=== PATIENT | male | born 1995 | race African-American/Black ===

== ENCOUNTER 2023-03-20 14:25 | Emergency (ER) | payer OTHER, SELFPAY ==
[2023-03-20 14:35] VITALS: BP 120/90; PULSE 64; RESP 20; TEMP 37.1; O2SAT 97; BMI 23.0
--- NOTE | 2023-03-20 14:43 | PC.NURSE ---
Laceration to left base of thumb, small amount of bleeding, area cleansed with chlorhexadine solution
[2023-03-20] MEDS: ADACEL DIPH,PERTUSS(ACELL),TET VAC/PF 0.5 ML ADULT SYRINGE IM (15:28)
[2023-03-20] MEDS: LIDOCAINE HCL 1% 100 MG/10 ML MDV INJ (15:28)
[2023-03-20] MEDS: BACITRACIN 0.9 GM PACKET 1 PACKET TOPICAL (15:30)
[2023-03-20 15:33] VITALS: BP 122/84; PULSE 66; RESP 18; O2SAT 98
--- NOTE | 2023-03-20 15:38 | ED_ITS ---
HPI - Wound/Laceration General Chief Complaint: Wound/Laceration Stated Complaint: BWC - L HAND INJURY Time Seen by Provider: 03/20/23 14:35 Source: patient Mode of arrival: walk-in Limitations: no limitations History of Present Illness HPI narrative: Patient is a 27-year-old male who presents to the emergency department for a laceration to the left hand. Patient states he was at work when he accidentally cut himself with a utility knife. He sustained a 2.5 cm laceration to the base of the left thumb, he is right-hand dominant. Bleeding is well-controlled. No other associated injuries. Related Data Previous Rx's Medication Instructions Recorded ibuprofen 600 mg tablet 600 mg PO QID PRN pain #20 tabs 03/20/23 Allergies Allergy/AdvReac Type Severity Reaction Status Date / Time No Known Drug Allergies Allergy Verified 03/20/23 14:34 Review of Systems ROS Constitutional Denies: fever or chills Ears, nose, mouth, and throat Denies: throat pain Cardiovascular Denies: chest pain Gastrointestinal Denies: nausea or vomiting Musculoskeletal Denies: extremity pain Integumentary/Breast Denies: rash Neurological Denies: headache Allergic/Immunologic Denies: hives Exam Narrative Exam Narrative: Gen.: Awake, alert, in no distress Head: Normocephalic, atraumatic ENT: Moist mucous membranes Respiratory: No respiratory distress Extremities: 2.5 cm superficial laceration noted to the left hand on the radial aspect of the left hand, just proximal to the first MCP joint. There is minimal subcutaneous tissue exposure, no tendon visualization. Normal flexion and extension at the IP joint of the left thumb, no evidence of tendon deficit. No active bleeding. Psych: Normal mood and affect Neuro: No focal neuro deficit Skin: Warm, dry Constitutional Vital Signs, click to edit/add: Last Vital Signs Temp 98.7 F 03/20/23 14:35 Pulse 66 03/20/23 15:33 Resp 18 03/20/23 15:33 BP 122/84 03/20/23 15:33 Pulse Ox 98 03/20/23 15:33 O2 Del Method Room Air 03/20/23 14:35 Course Vital Signs Vital signs: Vital Signs Temperature 98.7 F 03/20/23 14:35 Pulse Rate 64 03/20/23 14:35 Respiratory Rate 20 03/20/23 14:35 Blood Pressure 120/90 03/20/23 14:35 Pulse Oximetry 97 03/20/23 14:35 Oxygen Delivery Method Room Air 03/20/23 14:35 Temperature 98.7 F 03/20/23 14:35 Pulse Rate 66 03/20/23 15:33 Respiratory Rate 18 03/20/23 15:33 Blood Pressure 122/84 03/20/23 15:33 Pulse Oximetry 98 03/20/23 15:33 Oxygen Delivery Method Room Air 03/20/23 14:35 MDM - Wound/Laceration MDM Narrative Medical decision making narrative: Laceration was repaired without difficulty, tetanus updated in the ER. Please see procedure note for details. Sutures removed in 7 to 10 days with occupational health, return to the emergency department if symptoms change or worsen. Prescription for anti-inflammatories given for home. Laceration repair: 4 cc of 1% lidocaine were injected locally to the laceration, appropriate anesthesia achieved. The laceration was cleansed with Shur-Clens and irrigated with saline, no foreign body identified. The laceration was closed with 3, 4-0 Ethilon sutures. Patient tolerated procedure well. The laceration was dressed with bacitracin, sterile dressing. Patient remains neurovascularly intact. Medical Records Attestation: I reviewed the patient's medical records. Discharge Plan Discharge Chief Complaint: Wound/Laceration Clinical Impression: Laceration of left hand Patient Disposition: Home, Self-Care Time of Disposition Decision: 15:34 Condition: Good Prescriptions / Home Meds: New ibuprofen 600 mg tablet 600 mg PO QID PRN (Reason: pain) Qty: 20 0RF Additional Instructions: Sutures removed in 7-10 days with occupational/industrial health Stand Alone Forms: Portal Instructions Referrals: [facility] [Outside] - 1 week (Sutures removed in 7-10 days)
== END 2023-03-20 15:42 | disposition home or self-care (01) ==
PROVIDERS: Emergency Provider Emergency Medicine
DX: S61.412A Laceration without foreign body of left hand, initial encounter (principal); Z23 Encounter for immunization; W26.0XXA Contact with knife, initial encounter
CPT/HCPCS: 12001; 90471; 90715; 99284